=== PATIENT | female | born 1970 | race Asian ===

== ENCOUNTER → 2018-08-08 | Outpatient (CLI) | payer OTHER ==
--- NOTE | 2018-08-08 17:06 | Diagnostic Imaging Report ---
Limited soft tissue neck ultrasound. History: Left neck swelling. Comparison: None Technique/findings: Limited ultrasound was performed of the left neck at the area of the patient's swelling. At the area of clinical concern, no sonographic abnormalities identified. Comparison images on the right neck is unremarkable. Incidental note is made of two left-sided thyroid nodules. There is a 2.5 cm mixed solid-cystic nodule in the left thyroid lobe with associated vascular flow. There is an additional isoechoic left thyroid lobe solid nodule measuring up to 0.9 cm. IMPRESSION: No mass corresponding to the patient's area of clinical concern in the neck. Incidental left-sided thyroid nodules, measuring up to 2.5 cm. Dedicated thyroid ultrasound is suggested for further evaluation. Signed by: Dr. Regan Campos MD on 08/08/2018 5:03 PM
== END ==
LOC: US 11:59
PROVIDERS: ATTEND Family Medicine
DX: R22.1 Localized swelling, mass and lump, neck (principal)
CPT/HCPCS: 76536